=== PATIENT | female | born 1965 | race Two or more races ===

== ENCOUNTER → 2017-07-03 | Day surgery (SDC) | payer OTHER ==
--- NOTE | 2017-07-05 14:23 | PATH ---
Surgical Pathology Report Patient Name: GAMALIEL DEWITT [facility]. Rec. #: [id number] /Age/Gender: 1965 (Age: 51) / F Account: [id number] Location: [facility] Taken: 07/03/2017 Received: 07/03/2017 Reported: 07/05/2017 Physicians: Shelly Cordero M.D. Specimen(s) Received A: LEFT BREAST SPECIMEN WITH CALCIFICATIONS B: LEFT BREAST SPECIMEN WITHOUT CALCIFICATIONS Clinical History Nonpalpable lesion Mammographic findings: Microcalcification, suspicious Final Diagnosis A. BREAST, LEFT, WITH CALCIFICATIONS, STEREOTACTIC BIOPSY: ATYPICAL DUCTAL HYPERPLASIA (ADH) AND COLUMNAR CELL CHANGE WITH ASSOCIATED CALCIFICATIONS. FIBROADENOMATOID CHANGE. B. BREAST, LEFT, WITHOUT CALCIFICATIONS, STEREOTACTIC BIOPSY: BENIGN BREAST TISSUE SHOWING FIBROADENOMATOID CHANGE. Electronically Signed Sana Gonzalez M.D. Gross Description A. Received in formalin labeled "left breast with calcifications," are 4 wise-yellow, cylindrical portions of fibroadipose tissue ranging from 0.6-2.0 cm in length and averaging 0.4 cm in diameter. The specimens are submitted in toto in one cassette. B. Received in formalin labeled "left breast without calcifications," are 5 wise-yellow, cylindrical portions of fibroadipose tissue ranging from 0.8-2.1 cm in length and averaging 0.3 cm in diameter. The specimens are submitted in toto in one cassette. Time to formalin fixation: 5 minutes Total formalin fixation time: Approximately 32 hours. 07/04/2017 [facility]07/04/2017
== END | disposition home or self-care (01) ==
LOC: FMAMMOTONE 08:35
PROVIDERS: ATTEND Family Medicine
PROC: 0HBU3ZX Excision of Left Breast, Percutaneous Approach, Diagnostic (ICD-10-PCS; principal; 2017-07-03)
DX: N60.92 Unspecified benign mammary dysplasia of left breast (principal); N64.89 Other specified disorders of breast; R92.1 Mammographic calcification found on diagnostic imaging of breast
CPT/HCPCS: 19081

== ENCOUNTER → 2018-03-06 | Day surgery (SDC) | payer OTHER ==
--- NOTE | 2018-03-07 17:22 | PATH ---
Surgical Pathology Report Patient Name: GAMALIEL DEWITT [facility]. Rec. #: [id number] /Age/Gender: 1965 (Age: 52) / F Account: [id number] Location: [facility] Taken: 03/06/2018 Received: 03/06/2018 Reported: 03/07/2018 Physicians: Roberth Waller M.D. Specimen(s) Received A: LEFT BREAST SPECIMEN WITH CALCIFICATIONS B: LEFT BREAST SPECIMEN WITHOUT CALCIFICATIONS Clinical History Nonpalpable lesion Mammographic findings: Microcalcification, suspicious Final Diagnosis A. LEFT BREAST SPECIMEN WITH CALCIFICATIONS, STEREOTACTIC BIOPSY: LOBULAR CARCINOMA IN SITU (LCIS), CLASSICAL TYPE. ADJACENT BREAST TISSUE SHOWING COLUMNAR CELL CHANGE, STROMAL FIBROSIS, AND MICROCALCIFICATIONS. B. LEFT BREAST SPECIMEN WITHOUT CALCIFICATIONS, STEREOTACTIC BIOPSY: LOBULAR CARCINOMA IN SITU (LCIS), CLASSICAL TYPE. ADJACENT BREAST TISSUE SHOWING USUAL DUCTAL HYPERPLASIA, APOCRINE METAPLASIA, STROMAL FIBROSIS, AND MICROCALCIFICATIONS. Comment: Immunohistochemical stain (on block B1) performed and interpreted at [facility] show the tumor cells are negative for E-cadherin, which supports a lobular phenotype. Electronically Signed Zena Silveira M.D. Gross Description A. Received in formalin labeled "left breast with calcifications," are 6 wise-yellow, cylindrical portions of fibroadipose tissue ranging from 0.7-1.6 cm in length and averaging 0.3 cm in diameter. The specimens are submitted in toto in one cassette. B. Received in formalin labeled "left breast without calcifications," are 10 wise-yellow, cylindrical portions of fibroadipose tissue ranging from 0.5-2.5 cm in length and averaging 0.4 cm in diameter. The specimens are submitted in toto in 2 cassettes. Time to formalin fixation: 5 minutes Total formalin fixation time: Approximately 7 hours. 03/06/201803/06/2018
== END | disposition home or self-care (01) ==
LOC: FMAMMOTONE 09:33
PROVIDERS: ATTEND Surgery Surgical Oncology
PROC: 0HBU3ZX Excision of Left Breast, Percutaneous Approach, Diagnostic (ICD-10-PCS; principal; 2018-03-06)
DX: D05.02 Lobular carcinoma in situ of left breast (principal); N60.32 Fibrosclerosis of left breast; N64.89 Other specified disorders of breast; R92.1 Mammographic calcification found on diagnostic imaging of breast
CPT/HCPCS: 19081; 87899; 88305-TC; 88342-TC; A4648